=== PATIENT | male | born 2000 | race Caucasian/White ===

== ENCOUNTER 2022-06-24 23:26 | Emergency (ER) | payer MEDICAID ==
[~2022-06-24] VITALS: Ht 180.3 cm; Wt 72.7 kg
--- NOTE | 2022-06-25 01:00 | NUR ---
PT VERY POOR HISTORIAN, STATES NO PAIN AND NO MEDICAL HX OR CURRENT PROBLEMS
[2022-06-25 04:00] VITALS: BP 107/67
== END 2022-06-25 08:13 | disposition home or self-care (01) ==
LOC: ER 23:27
DX: F10.129 Alcohol abuse with intoxication, unspecified (principal); Y90.9 Presence of alcohol in blood, level not specified
CPT/HCPCS: 36415; 80320; 99285